=== PATIENT | female | born 1995 | race Caucasian/White ===

== ENCOUNTER 2020-03-19 14:48 | Inpatient (IN) | payer OTHER ==
[2020-03-19 16:26] LABS: Hematocrit 37.3 % (35-47); Hemoglobin 12.3 gm/dl (12.0-16.0); Mean Cell Volume 86.9 fl (78-100); Mean Corpuscular Hemoglobin 28.7 pg (26-32); Mean Platelet Volume 11.3 fl (7.5-11.0); Platelet Count 303 K/mm3 (150-450); Red Blood Count 4.29 M/mm3 (4.1-5.4); Red Cell Distribution Width 13.5 % (11.5-14.0); White Blood Count 14.3 K/mm3 (4.0-10.5)
[2020-03-19] MEDS ORDERED: TRANDATE 20 MG/4 ML SYRINGE IV ONE ×4 (17:01→17:36)
[2020-03-19] MEDS ORDERED: Lactated Ringers 1,000 ML IV ONE (17:11)
[2020-03-19] MEDS ORDERED: SOD CITRATE-CITRIC ACID SOLN PO ONE (17:12)
[2020-03-19] MEDS ORDERED: Reglan 10 MG/2 ML IV SCH (17:15)
[2020-03-19] MEDS ORDERED: Pepcid 20 MG VIAL IV SCH (17:15)
[2020-03-19 17:20] LABS: ALBUMIN 3.5 g/dL (3.5-5.0); ALKALINE PHOSPHATASE 104 U/L (38-126); ANION GAP 9.7 MEQ/L (5-15); BLOOD UREA NITROGEN 6 mg/dL (7-17); CHLORIDE 107 mmol/L (98-107); Calcium 9.2 mg/dL (8.4-10.2); Carbon Dioxide 20 mmol/L (22-30); Creatinine 1 0.51 mg/dL (0.52-1.04); EST GLOMERULAR FILTRATION RATE > 60.0 ML/MIN; Glucose 99 mg/dL (74-106); Potassium 3.8 mmol/L (3.5-5.1); SGOT/AST 17 U/L (14-36); SGPT/ALT 10 U/L (0-35); SODIUM 134 mmol/L (137-145); Total Protein 6.8 g/dL (6.3-8.2); Uric Acid 3.4 mg/dL (2.6-6.0)
[2020-03-19] MEDS: Magnesium Sulfate 40 Gm/1000 Ml H2O Premix*** 1,000 ML IV SCH (17:25)
[2020-03-19] MEDS ORDERED: CEFAZOLIN 2 GM-D5W BAG** 2 GM/50 ML ML IV SCH (17:30)
[2020-03-19 17:44] LABS: INR 1.01 (0.8-3.0); PROTIME 11.4 SECONDS (9.95-12.35)
[2020-03-19 17:45] LABS: Hematocrit 37.4 % (35-47); Hemoglobin 12.5 gm/dl (12.0-16.0); Mean Cell Volume 86.8 fl (78-100); Mean Corpuscular Hgb Concent. 33.4 g/dl (32-36); Mean Platelet Volume 11.4 fl (7.5-11.0); Platelet Count 307 K/mm3 (150-450); Red Blood Count 4.31 M/mm3 (4.1-5.4); Red Cell Distribution Width 13.4 % (11.5-14.0); White Blood Count 14.4 K/mm3 (4.0-10.5)
[2020-03-19 17:47] LABS: PTT 26.4 SECONDS (25.3-37.0)
[2020-03-19] MEDS ORDERED: Astramorph-Pf 5 MG/10 ML ONE (17:49)
[2020-03-19] MEDS ORDERED: Pitocin 10 UNITS/ML ONE ×2 (17:49→18:51)
[2020-03-19] MEDS ORDERED: PHENYLEPHRINE HCL ONE (17:51)
[2020-03-19 18:06] LABS: Creatinine, Urine Random 123.9 mg/dl (30-125)
[2020-03-19 18:17] LABS: Amphetamine,Urine NEGATIVE (NEGATIVE); Barbiturate,Urine NEGATIVE (NEGATIVE); Benzodiazepine,Urine NEGATIVE (NEGATIVE); Cocaine,Urine NEGATIVE (NEGATIVE); Methadone,Urine NEGATIVE (NEGATIVE); Opiate,Urine NEGATIVE (NEGATIVE); PCP,Urine NEGATIVE (NEGATIVE); THC,Urine NEGATIVE (NEGATIVE)
[2020-03-19 18:20] LABS: Appearance CLOUDY (CLEAR); Bilirubin NEGATIVE (NEGATIVE); Blood NEGATIVE Ery/ul (0-5); Glucose NEGATIVE (NEGATIVE); Hyaline Casts 0-2 /LPF (0-2); Ketones NEGATIVE (NEGATIVE); Leukocyte Esterase NEGATIVE (NEGATIVE); Mucus SLIGHT /HPF (NEGATIVE); Nitrite NEGATIVE (NEGATIVE); Protein,Urine Dip 30 (Negative); Specific Gravity 1.015 (1.005-1.025); Urobilinogen 2 mg/dL (0-1)
[2020-03-19 18:33] LABS: ABO TYPING A; Antibody Screen NEGATIVE (NEGATIVE); RH TYPING POSITIVE
[2020-03-19] MEDS ORDERED: Ephedrine Sulfate 50 MG/ML ONE (18:34)
[2020-03-19] MEDS ORDERED: Marcaine Spinal Ampul IJ ONE (18:44)
[2020-03-19] MEDS ORDERED: Naropin 0.5% 30 ML VIAL ONE (18:44)
[2020-03-19] MEDS ORDERED: EPINEPHRINE 1MG/ML AMP ONE (18:45)
[2020-03-19] MEDS ORDERED: Xylocaine-Mpf 2% 5 Ml Vial ONE (18:49)
[2020-03-19] MEDS ORDERED: Zofran 4 MG/2 ML VIAL ONE (18:53)
[2020-03-19] MEDS: Lactated Ringers 1,000 ML IV SCH ×2 (19:34→19:35)
[2020-03-19] MEDS ORDERED: CLARITIN 10 MG PO PRN (20:44)
[2020-03-19] MEDS ORDERED: LANSINOH 40 GM TOP PRN (20:44)
[2020-03-19] MEDS ORDERED: Nubain 10 MG/ML IV PRN (20:44)
[2020-03-19] MEDS ORDERED: Sodium Chloride 0.9% 10 ML FLUSH Syringe IJ PRN (20:44)
[2020-03-19] MEDS ORDERED: Anucort-HC SUPPOSITORY PR PRN (20:44)
[2020-03-19] MEDS ORDERED: Ambien 10 MG PO PRN (20:44)
[2020-03-19] MEDS ORDERED: BENADRYL 50 MG/ML IV PRN (20:44)
[2020-03-19] MEDS ORDERED: CORTISONE 1% CREAM TP PRN (20:44)
[2020-03-19] MEDS ORDERED: TUCKS TP PRN (20:44)
[2020-03-19] MEDS ORDERED: Phenergan 25 MG INJ IM PRN (20:44)
[2020-03-19] MEDS ORDERED: Dermoplast Spray TP PRN (20:44)
[2020-03-19] MEDS ORDERED: MORPHINE SULFATE 2 MG INJ IV PRN (20:44)
[2020-03-19] MEDS ORDERED: HOLD NARCOTIC ANALGESICS AND SEDATIVES X24 HR MC PRN (20:44)
[2020-03-19] MEDS ORDERED: PERCOCET TABLET 5/325MG PO PRN (20:44)
[2020-03-19] MEDS ORDERED: DEMEROL 50 MG IV PRN (20:44)
[2020-03-19] MEDS ORDERED: Narcan 0.4 MG/ML IV PRN (20:44)
[2020-03-19] MEDS ORDERED: Zofran 4 MG/2 ML VIAL IV PRN (20:44)
[2020-03-19] MEDS ORDERED: Dulcolax 10 MG SUPP PR PRN (20:44)
[2020-03-19] MEDS: Colace 100 MG PO SCH (21:44)
[2020-03-20] MEDS: Dextrose 5%-Lr IV Solution 1000 ML 1,000 ML IV SCH ×2 (00:02→16:26)
[2020-03-20] MEDS: KEFZOL 1 GM/50 ML PREMIX** 1 GM/50 ML IVPB IV SCH ×3 (02:00→14:44)
[2020-03-20] MEDS: MOTRIN 400 MG PO PRN ×3 (06:01→22:10)
[2020-03-20 07:20] LABS: Absolute Neutrophil Ct (ANC) 10.96 (1.4-6.9); BASOPHIL % 0.1 % (0.0-0.4); Basophil (Absolute #) 0.02 (0-0.4); Eosinophil % 0.2 % (0.00-5.0); Eosinophil (Absolute #) 0.03 (0-0.5); Hemoglobin 10.5 gm/dl (12.0-16.0); Lymphocyte (Absolute #) 2.84 (1.0-4.6); Lymphocytes % 18.7 % (24.0-44.0); Mean Cell Volume 88.6 fl (78-100); Mean Corpuscular Hemoglobin 29.1 pg (26-32); Mean Corpuscular Hgb Concent. 32.8 g/dl (32-36); Mean Platelet Volume 11.8 fl (7.5-11.0); Monocyte (Absolute #) 1.36 (0.0-1.3); Monocytes % 8.9 % (0.0-12.0); Neutrophil % 72.1 % (36.0-66.0); Platelet Count 280 K/mm3 (150-450); Red Blood Count 3.61 M/mm3 (4.1-5.4); Red Cell Distribution Width 13.6 % (11.5-14.0); White Blood Count 15.2 K/mm3 (4.0-10.5)
[2020-03-20] MEDS ORDERED: M-M-R II Vaccine With Diluent SQ ONE (08:00)
[2020-03-20] MEDS ORDERED: ENOXAPARIN SODIUM SQ ONE (08:00)
--- NOTE | 2020-03-20 08:31 | OP ---
SURGERY DATE/TIME: 03/19/20201811 PREOPERATIVE DIAGNOSIS: Intrauterine at 39 weeks and 3 days gestation with preeclampsia with severe features superimposed on delivery with noninducible cervix. POSTOPERATIVE DIAGNOSIS: Intrauterine at 39 weeks and 3 days gestation with preeclampsia with severe features superimposed on delivery with noninducible cervix. PROCEDURE: Primary section low flap transverse uterine incision, Pfannenstiel skin incision. SURGEON: Romie Hampton D.O. ASSISTANTS: Miguel Merritt, Physician Safe Deposit Clerk Student, Magda Suero, surgical instrument mechanic. ANESTHESIA: Spinal. ESTIMATED BLOOD LOSS: 600 cc. COMPLICATIONS: None. INDICATIONS: The risks, benefits, indications and alternatives of the procedure were reviewed with the patient prior to the procedure. The patient understood the risk of infection, bleeding, bowel injury, bladder injury, ureteral injury, pelvic infection, thromboembolic disorder associated with this surgery however desires to have this procedure as a possible means to alleviate her current medical condition. DESCRIPTION OF PROCEDURE AND FINDINGS: At this point the patient is taken to the operating room where her spinal anesthesia was found to adequate. She was then prepared and draped in normal sterile fashion in the dorsal supine position with a leftward tilt. A Pfannenstiel skin incision is made with a scalpel and carried through to the underlying layer of the fascia with Bovie. The fascia was then incised in the midline and the incision extended laterally with Claire scissors. The superior aspect of the fascial incision was then grasped with Mariela clamps elevated and the underlying rectus muscles dissected off bluntly. Attention is then turned to the inferior aspect of this incision which in similar fashion was grasped, tented up with Mariela clamps and the rectus muscles dissected off bluntly. The rectus muscles were then at the midline and the peritoneum identified, tented up and entered sharply with Metzenbaum scissors. The peritoneum incision was then extended superiorly and inferiorly with good visualization of the bladder. The bladder blade was then inserted and the vesicouterine peritoneum identified, grasped with pickups and entered sharply with Metzenbaum scissors. This incision was then extended laterally and bladder flap created digitally. The bladder blade was then re-inserted and the lower uterine segment incised in transverse fashion with a scalpel. The uterine incision was then extended laterally with bandage scissors. The bladder blade was then removed and the 's head was delivered atraumatically. The nose and mouth were suctioned with suction cup and the cord clamped and cut. The was then handed off to the awaiting nurses. The placenta was then removed manually. The uterus exteriorized and cleared of all clots and debris. The uterine incision was repaired with 1-0 chromic in a running locked fashion. A second layer of the same suture was used to obtain excellent hemostasis. The uterus is then returned to the abdomen. The gutters were cleared of all clots. The peritoneum muscles closed in interrupted fashion using 2-0 chromic suture. The fascia was reapproximated with 0 chromic in running fashion. The skin was closed with absorbable vanessa called INSORB. The patient tolerated the procedure well. Sponge, lap, needle and instrument counts were correct x2. The patient was then taken to the recovery room in stable condition. The patient delivered a live baby boy at 1840 hours, weight 8 pounds 2 ounces and 's were 7 at 1 minute and 8 at 5 minutes.
[2020-03-20] MEDS ORDERED: Adacel Vial IM ONE (09:00)
[2020-03-20] MEDS: FERREX 150 PO SCH (09:12)
[2020-03-20] MEDS: Colace 100 MG PO SCH ×2 (09:12→22:10)
[2020-03-20] MEDS ORDERED: NON-FORMULARY ITEM (Citalopram Hydrobromide [Celexa] 40 MG) PO SCH (10:00)
[2020-03-20] MEDS: TYLENOL EXTRA STRENGTH 500 MG PO PRN (10:21)
[2020-03-20] MEDS: SYNTHROID 50 MCG PO SCH (10:21)
[2020-03-20] MEDS: ceLEXa 20 MG PO SCH (10:22)
[2020-03-20] MEDS: NICODERM CQ 14 MG TOP SCH (10:22)
[2020-03-20] MEDS: Magnesium Sulfate 40 Gm/1000 Ml H2O Premix*** 1,000 ML IV SCH (10:28)
[2020-03-20] MEDS ORDERED: TRANDATE 20 MG/4 ML SYRINGE IV ONE (21:52)
[2020-03-20] MEDS: Mylicon 80MG PO PRN (22:10)
[2020-03-20] MEDS: NORCO 5/325 MG PO PRN (22:11)
[2020-03-21] MEDS: Adalat CC 30 MG TABLET PO SCH ×2 (00:11→14:41)
[2020-03-21] MEDS ORDERED: TRANDATE 20 MG/4 ML SYRINGE IV ONE (09:25)
[2020-03-21] MEDS: Mylicon 80MG PO PRN (09:45)
[2020-03-21] MEDS: Colace 100 MG PO SCH ×2 (09:45→21:02)
[2020-03-21] MEDS: MOTRIN 400 MG PO PRN ×2 (09:45→18:59)
[2020-03-21] MEDS: FERREX 150 PO SCH (09:46)
[2020-03-21] MEDS: NICODERM CQ 14 MG TOP SCH (10:03)
[2020-03-21] MEDS: ceLEXa 20 MG PO SCH (10:08)
[2020-03-21] MEDS: SYNTHROID 50 MCG PO SCH (10:09)
[2020-03-21] MEDS ORDERED: Adalat CC 30 MG TABLET PO ONE (12:40)
[2020-03-21] MEDS: TYLENOL EXTRA STRENGTH 500 MG PO PRN (21:00)
[2020-03-21] MEDS ORDERED: Adalat CC 30 MG TABLET PO SCH (22:00)
[2020-03-22] MEDS: MOTRIN 400 MG PO PRN (00:54)
[2020-03-22] MEDS: TYLENOL EXTRA STRENGTH 500 MG PO PRN ×2 (00:55→08:15)
[2020-03-22] MEDS ORDERED: Trandate 100 MG PO ONE ×2 (04:30→12:30)
[2020-03-22 05:54] VITALS: O2SAT 96
[2020-03-22] MEDS: ceLEXa 20 MG PO SCH (10:24)
[2020-03-22] MEDS: FERREX 150 PO SCH (10:24)
[2020-03-22] MEDS: SYNTHROID 50 MCG PO SCH (10:24)
[2020-03-22] MEDS: Colace 100 MG PO SCH (10:24)
[2020-03-22] MEDS: NICODERM CQ 14 MG TOP SCH (10:24)
--- NOTE | 2020-03-22 10:30 | PCM.NOTE ---
Date and Time: 03/22/20 1027 Subjective Assessment: pod 3 sp csection pt resting in bed and doing well. denies anthony visual disturbance or ruq pain. desires to go home today. pt ambulating and tolerating diet. was given labetolol 200mg at 430 am secondary to elevated bp vss afebrile abd; soft incision c/d/intact uterus; firm lochia; mild a/p sp csection secondary to preeclampsia with severe features will dc home today on labetolol 100mg tid should fu in office this for bp evaluation. OBJECTIVE DATA Vital Signs: Vital Signs - 24 hr Temp Pulse Resp BP Pulse Ox 03/22/20 08:00 131/79 03/22/20 05:52 95 H 20 120/69 96 03/22/20 04:00 98.8 F 92 H 18 164/95 97 03/21/20 22:00 114 H 20 142/87 97 03/21/20 19:40 99 F 122 H 18 142/90 97 03/21/20 15:15 108 H 18 143/92 03/21/20 12:05 98.7 F 110 H 18 150/77 98 Pain Assessment - Last Documented Pain Intensity [Lower Anterior 6 ] Pain Intensity 4 [facility] Intake and Output: Intake & Output 03/19/20 03/20/20 03/21/20 03/22/20 11:59 11:59 11:59 11:59 Intake Total 4104 2050 480 Output Total 3825 3325 Balance 279 -4555 480 Weight 129.727 kg
--- NOTE | 2020-03-22 10:35 | PCM.DS ---
Discharge Summary Date of Admission: 03/19/20 15:30 Date of Discharge: march 22, 2020 Admitting Physician: LAURIE CARLOS DO Consults: Consults on Case 03/19/20 17:08 Notify Physician ROUTINE 03/19/20 17:19 Notify Anesthesia Provider ROUTINE Primary Care Provider: MICHAEL VASQUEZ Allergies Allergies No Known Drug Allergies Allergy (Verified 03/19/20 18:02) Hospital Summary - Hospital Course Hospital Course: pt admitted on mar 19 secondary to having severely elevated bp 170's/120 with abnormal protein creatinine ratio. pt with continued elevated bp and was started on mgso4 and subsequently taken for csection. she was given labetolol iv prior to csection. during postop period did well however with elevated bp and was continued on mgso4 while adjusting her bp medication as she was started originally on procardia 30mg xr however did not control her bp as she was given extra dose of procardia yesterday. pt with elevated bp this morning and was started on labetolol 200mg and now doing well. pt at this time stable for discharge and was advised to call for any headache or any other symptoms that makes it difficult for her. pt advised to fu in office this for postop evaluation and bp check. pt given norco for pain management as well as labetolol 100mg tid. all questions answered to her satisfaction. - Vitals & Intake/Output Vital Signs: Vital Signs Temperature 98.8 F 03/22/20 04:00 Pulse Rate 95 H 03/22/20 05:52 Respiratory Rate 20 03/22/20 05:52 Blood Pressure 131/79 03/22/20 08:00 O2 Sat by Pulse Oximetry 96 03/22/20 05:52 Intake & Output: Intake & Output 03/19/20 03/20/20 03/21/20 03/22/20 11:59 11:59 11:59 11:59 Intake Total 4104 2050 480 Output Total 3825 3325 Balance 279 -1275 480 Weight 129.727 kg - Lab Result Diagrams: 03/20/20 05:40 03/19/20 15:51 Micro Results-Entire Visit: Microbiology 03/19/20 17:13 Urine Culture - Final Urine, Indwelling Catheter NO GROWTH - Procedures and Test Procedures and Tests throughout Hospitalization: Therapy Orders & Screens 03/19/20 20:49 Standby STAT Comment: Diagnosis: Pre eclampsia with severe features - Discharge Disposition: Home, Self-Care Condition: Stable Prescriptions: No Action Levothyroxine Sodium 50 Mcg [Synthroid 50 Mcg] 50 mcg PO DAILY Citalopram Hydrobromide [ceLEXa] 40 mg PO DAILY Follow up with: MICHAEL VASQUEZ MD [Primary Care Provider] -
--- NOTE | 2020-03-22 10:37 | PCM.DCORD ---
- Discharge Discharge Date: 03/22/20 Disposition: Home, Self-Care Condition: Stable Prescriptions: No Action Levothyroxine Sodium 50 Mcg [Synthroid 50 Mcg] 50 mcg PO DAILY Citalopram Hydrobromide [ceLEXa] 40 mg PO DAILY Follow up with: LAURIE CARLOS DO [ACTIVE STAFF] - 5 Days MICHAEL VASQUEZ MD [Primary Care Provider] - 1 Week (should fu in office this for bp evaluation should fu with her primary care provider for management of bp)
[2020-03-22] MEDS ORDERED: Adalat CC 30 MG TABLET PO ONE (12:40)
[2020-03-22] MEDS: NORCO 5/325 MG PO PRN (12:54)
[2020-03-22 15:04] VITALS: BP 145/87; PULSE 123
== END 2020-03-22 15:40 | disposition home or self-care (01) | DRG 788 ==
LOC: WHC 14:48 → OBSVTOIN 15:30 → OB 15:30
PROVIDERS: ADMIT Obstetrics & Gynecology; ATTEND Obstetrics & Gynecology
PROC: 10D00Z1 Extraction of Products of Conception, Low, Open Approach (ICD-10-PCS; principal; 2020-03-19)
DX: O14.14 Severe pre-eclampsia complicating childbirth (principal); Z3A.39 39 weeks gestation of pregnancy; Z37.0 Single live birth
CPT/HCPCS: 36415; 59426; 62322; 64486; 64488; 76815; 76942; 80053; 80307; 81001; 81002; 82570; 83735; 84156; 84550; 85025; 85027; 85610; 85730; 86850; 86900; 86901; 87086; 88307; 90471; 90715; 94799; 99140; G0378; J0171; J0690; J1650; J2274; J2370; J2405; J2590; J2795; L0625; A9270-GY